=== PATIENT | male | born 1945 | race Caucasian/White ===

== ENCOUNTER 2018-01-21 11:28 | Emergency (ER) | payer OTHER ==
--- NOTE | 2018-01-21 12:02 | ER ---
Nurse's Notes [facility] Name: Roosevelt Whiting Age: 72 yrs Sex: Male : 1945 Arrival Date: 01/21/2018 Time: 11:32 Bed 13 Private MD: Out, [facility] Diagnosis: Unspecified otitis externa, right ear Presentation: 01/21 11:54 Presenting complaint: Patient states: R ear pain and swelling that began yesterday. ss Denies fever/ drainage. Transition of care: patient was not received from another setting of care. Onset of symptoms was January 20, 2018. Risk Assessment: Do you want to hurt yourself or someone else? Patient reports no desire to harm self or others. Initial Sepsis Screen: Does the patient meet any 2 criteria? No. Patient's initial sepsis screen is negative. Does the patient have a suspected source of infection? Yes: Other: redness/ swelling to R ear. Care prior to arrival: None. 11:54 Method Of Arrival: Ambulatory ss 11:54 Acuity: SAYRA 4 ss Historical: - Allergies: 11:56 "Mycins"; ss - PMHx: 11:56 Glaucoma; hearing loss; ss - Immunization history:: Flu vaccine is not up to date. - Social history:: Smoking status: Patient/guardian denies using tobacco. - Ebola Screening: : Patient denies exposure to infectious person Patient denies travel to an Ebola-affected area in the 21 days before illness onset. Screenin:01 Abuse screen: Denies threats or abuse. Denies injuries from another. Nutritional ss screening: No deficits noted. Tuberculosis screening: No symptoms or risk factors identified. Never had TB. Fall Risk None identified. Assessment: 12:02 General: Appears in no apparent distress. Behavior is calm, cooperative, Denies fever, ss feeling ill, fatigue, chills. Pain: Complains of pain in pinna of right ear, right ear lobe, right ear canal and right preauricular area Pain currently is 5 out of 10 on a pain scale. Quality of pain is described as aching, tender, Pain began 1 day ago. Is continuous, Aggravated by tugging at ear. Neuro: Level of Consciousness is awake, alert, obeys commands, Oriented to person, place, time, situation. Cardiovascular: Capillary refill < 3 seconds is brisk in bilateral fingers. Respiratory: Respiratory effort is even, unlabored. EENT: swelling noted to R ear canal. Derm: Skin is intact, is healthy with good turgor, Skin is pink, warm \\T\\ dry. normal. Musculoskeletal: No signs and/or symptoms reported regarding the musculoskeletal system. 12:13 Reassessment: ear wick placed to R ear as ordered by JOE Alvarado. Vital Signs: 11:56 BP 144 / 97; Pulse 72; Resp 17; Pulse Ox 98% on R/A; Weight 80.29 kg; Height 5 ft. 6 ss in. (167.64 cm); Pain 5/10; 12:01 Temp 98.4(TE); ss 11:56 Body Mass Index 28.57 (80.29 kg, 167.64 cm) ED Course: 11:32 Patient arrived in ED. sb2 11:32 Out, [facility] is Private Physician. sb2 11:41 Cherelle Verma F[facility]-C [facility] kb 11:41 Janusz Busch MD is Attending Physician. kb 11:55 Triage completed. ss 11:56 Arm band placed on right wrist. ss 11:58 Leonel Uriarte, RN is Primary Nurse. sg 12:01 Patient has correct armband on for positive identification. Bed in low position. Call ss light in reach. Adult w/ patient. 12:01 No provider procedures requiring assistance completed. Patient did not have IV access ss during this emergency room visit. Administered Medications: No medications were administered Outcome: 12:01 Discharge ordered by MD. kb 12:14 Discharged to home ambulatory. ss 12:14 Condition: good 12:14 Discharge instructions given to patient, family, pt refused eardrops with any steroids Instructed on discharge instructions, follow up and referral plans. medication usage, Demonstrated understanding of instructions, follow-up care, medications, Prescriptions given X 1. 12:15 Patient left the ED. Signatures: Cherelle Verma FNP-C FNP-Leonel Salamanca, RN RN Hannah Palmer RN RN Cass Rose sb2
--- NOTE | 2018-01-21 12:02 | EDPHYS ---
Physician Documentation [facility] Name: Roosevelt Whiting Age: 72 yrs Sex: Male : 1945 Arrival Date: 01/21/2018 Time: 11:32 Bed 13 Private MD: Out, [facility] ED Physician Janusz Busch HPI: 01/21 11:56 This 72 yrs old Male presents to ER via Ambulatory with complaints of Ear Pain. kb 11:56 The patient presents with pain, moderate. The complaints affect the right ear. Onset: kb The symptoms/episode began/occurred 2 day(s) ago. Modifying factors: The symptoms are alleviated by nothing, the symptoms are aggravated by pulling on ears, touching. Associated signs and symptoms: The patient has no apparent associated signs or symptoms. Severity of symptoms: At their worst the symptoms were moderate in the emergency department the symptoms are unchanged. The patient has not experienced similar symptoms in the past. The patient has not recently seen a physician. Pt reports soreness of right ear after removing hearing aid 2 nights ago. Woke up with pain and swelling yesterday, symptoms worse today. Historical: - Allergies: 11:56 "Mycins"; ss - PMHx: 11:56 Glaucoma; hearing loss; ss - Immunization history:: Flu vaccine is not up to date. - Social history:: Smoking status: Patient/guardian denies using tobacco. - Ebola Screening: : Patient denies exposure to infectious person Patient denies travel to an Ebola-affected area in the 21 days before illness onset. ROS: 11:56 Constitutional: Negative for fever, chills, and weight loss, Cardiovascular: Negative kb for chest pain, palpitations, and edema, Respiratory: Negative for shortness of breath, cough, wheezing, and pleuritic chest pain, Abdomen/GI: Negative for abdominal pain, nausea, vomiting, diarrhea, and constipation, MS/Extremity: Negative for injury and deformity, Skin: Negative for injury, rash, and discoloration, Neuro: Negative for headache, weakness, numbness, tingling, and seizure. 11:56 ENT: Positive for drainage from ear(s), ear pain. Exam: 11:56 Constitutional: This is a well developed, well nourished patient who is awake, alert, kb and in no acute distress. Head/Face: Normocephalic, atraumatic. Chest/axilla: Normal chest wall appearance and motion. Nontender with no deformity. No lesions are appreciated. Cardiovascular: Regular rate and rhythm with a normal S1 and S2. No gallops, murmurs, or rubs. Normal PMI, no JVD. No pulse deficits. Respiratory: Lungs have equal breath sounds bilaterally, clear to auscultation and percussion. No rales, rhonchi or wheezes noted. No increased work of breathing, no retractions or nasal flaring. Abdomen/GI: Soft, non-tender, with normal bowel sounds. No distension or tympany. No guarding or rebound. No evidence of tenderness throughout. Skin: Warm, dry with normal turgor. Normal color with no rashes, no lesions, and no evidence of cellulitis. MS/ Extremity: Pulses equal, no cyanosis. Neurovascular intact. Full, normal range of motion. Neuro: Awake and alert, GCS 15, oriented to person, place, time, and situation. Cranial nerves II-XII grossly intact. Motor strength 5/5 in all extremities. Sensory grossly intact. Cerebellar exam normal. Normal gait. 11:56 ENT: External ear(s): pain with movement, that is moderate, of the right ear lobe and right preauricular area, Ear canal(s): swelling, that is severe, of the right canal, TM's: not visable, swelling. Vital Signs: 11:56 BP 144 / 97; Pulse 72; Resp 17; Pulse Ox 98% on R/A; Weight 80.29 kg; Height 5 ft. 6 ss in. (167.64 cm); Pain 5/10; 12:01 Temp 98.4(TE); ss 11:56 Body Mass Index 28.57 (80.29 kg, 167.64 cm) ss MDM: 11:53 Patient medically screened. kb 11:53 Data reviewed: vital signs, nurses notes. Data interpreted: Pulse oximetry: on room air kb is 100 %. Interpretation: normal. Counseling: I had a detailed discussion with the patient and/or guardian regarding: the historical points, exam findings, and any diagnostic results supporting the discharge/admit diagnosis, the need for outpatient follow up, an ENT specialist, to return to the emergency department if symptoms worsen or persist or if there are any questions or concerns that arise at home. ED course: After discussing need for ciprodex for otitis externa, pt insistent upon receiving antibiotic drops that do not contain a steroid. Reports hx of glaucoma and does not want any steroids. . 01/21 12:15 Order name: Albert. Order: ear wick to R ear; Complete Time: 12:15 ss Administered Medications: No medications were administered Disposition: 18:52 Co-signature as Attending Physician, Janusz Busch MD available for consultation at ps1 all times. . Disposition: 01/21/18 12:01 Discharged to Home. Impression: Unspecified otitis externa, right ear. - Condition is Stable. - Discharge Instructions: Otitis Externa, [id number], Ear Drops, Adult, [id number]. - Prescriptions for ofloxacin 0.3 % Otic drops - instill 10 drop by OTIC route once daily for 10 days; 1 bottle. - Medication Reconciliation Form, Thank You Letter, Antibiotic Education, Prescription Opioid Use form. - Follow up: Emergency Department; When: As needed; Reason: Worsening of condition. Follow up: Private Physician; When: 2 - 3 days; Reason: Recheck today's complaints, Continuance of care, Re-evaluation by your physician. Signatures: Cherelle Verma, TANK TRUCK DRIVER-C TANK TRUCK DRIVER-Hannah Skaggs, DANIELLE RN Janusz Barton MD MD ps1 Corrections: (The following items were deleted from the chart) 12:15 12:01 01/21/2018 12:01 Discharged to Home. Impression: Unspecified otitis externa, ss right ear. Condition is Stable. Discharge Instructions: Otitis Externa, [id number]. Prescriptions for ofloxacin 0.3 % Otic drops - instill 10 drop by OTIC route once daily for 10 days; 1 bottle. and Forms are Medication Reconciliation Form, Thank You Letter, Antibiotic Education, Prescription Opioid Use. Follow up: Emergency Department; When: As needed; Reason: Worsening of condition. Follow up: Private Physician; When: 2 - 3 days; Reason: Recheck today's complaints, Continuance of care, Re-evaluation by your physician. kb
== END 2018-01-21 12:15 | disposition home or self-care (01) ==
LOC: ER 11:28
DX: H60.91 Unspecified otitis externa, right ear (principal)
CPT/HCPCS: 99282